=== PATIENT | female | born 1970 | race Caucasian/White ===

== ENCOUNTER → 2023-07-02 | Outpatient (CLI) | payer MEDICARE, MEDICAID, SELFPAY ==
[2023-07-02 14:54] LABS: Absolute Lymphocyte Count 2.87 X10^3/uL (0.83-4.51); Basophil# 0.05 X10^3/uL; Basophil% 0.5 % (0-1); Eosinophil# 0.03 X10^3/uL; Eosinophils% 0.3 % (0-5); Hematocrit 42.9 % (37-47); Hemoglobin 13.5 g/dL (12.0-15.0); Lymphocyte # 2.87 X10^3/ul (0.83-4.51); Lymphocyte % 29.8 % (19-41); Mean Corp Hgb Conc 31.5 g/dL (32-36); Mean Corpuscular Hgb 32.8 pg (27.0-32.0); Mean Corpuscular Volume 104.4 fL (81-99); Mean Platelet Vol. 10.9 fl (6.2-12.0); Monocyte# 0.57 X10^3/uL; Monocyte% 5.9 % (0-10); NRBC Flagged by Analyzer 0 % (0-5); Neutrophil # 5.99 X10^3/uL (2.7-7.7); Neutrophil % 62.2 % (47-70); Platelet Count 238 K/mm3 (150-450); RBC Distribution Width CV 13.7 % (11.6-14.6); RBC Distribution Width SD 51.9 fl (35.1-43.9); RET-HE 36.7 pg (30-35); Red Blood Count 4.11 M/mm3 (4.2-5.4); Reticulocyte Count 1.54 % (0.5-1.5); White Blood Count 9.6 K/mm3 (4.4-11.0)
[2023-07-02 15:42] LABS: Vitamin B12 290 pg/mL (211-911)
[2023-07-02 15:46] LABS: Hemoglobin A1c 5.4 % (3.8-5.6)
[2023-07-02 15:47] LABS: Erythrocyte Sedimentation Rate 5 mm/hr (0-30)
[2023-07-02 15:59] LABS: Amylase 57 U/L (25-115); CRP < 2.90 mg/L (0.0-3.0); Ferritin 55 ng/mL (8-252); Free T3 1.9 pg/mL (2.18-3.98); Iron 94 ug/dL (50-170); Iron Binding Capacity,Total 380 ug/dL (250-450); LDH 160 U/L (84-246); Lipase 22 U/L (13-75); T4 Free Direct 1.15 ng/dL (0.76-1.46); Thyroid Stim Hormone (TSH) 1.61 uIU/mL (0.358-3.74)
[2023-07-06 14:09] LABS: Anti-Centromere B Ab <0.2 AI (0.0-0.9); Anti-Chromatin <0.2 AI (0.0-0.9); Anti-Jo <0.2 AI (0.0-0.9); Anti-Scleroderma-70 AB <0.2 AI (0.0-0.9); Anti-dsDNA Ab <1 IU/mL (0-9); RNP Ab 0.2 AI (0.0-0.9); SJOGREN'S Anti-SS-A test < 0.2 AI (0.0-0.9); SJOGREN'S Anti-SS-B test < 0.2 AI (0.0-0.9); Smith Ab <0.2 AI (0.0-0.9); Vitamin D 1,25-Dihydroxy 37.1 pg/mL (24.8-81.5)
[2023-07-08 00:07] LABS: Albumin 3.3 g/dL (2.9-4.4); Alpha-1-Globulins 0.3 g/dL (0.0-0.4); Cytoplasmic Ab (C-ANCA) <1:20 titer (Neg:<1:20); Endomysial Antibody IgA Negative (Negative); Gamma Globulin 1.2 g/dL (0.4-1.8); Gastrin, Serum 493 pg/mL (0-115); Haptoglobin 174 mg/dL (33-346); Immunoglobulin A 190 mg/dL (87-352); Immunoglobulin E 146 IU/mL (6-495); Immunoglobulin G 1196 mg/dL (586-1602); Immunoglobulin M 83 mg/dL (26-217); PROEL- TOTAL PROTEIN 6.9 g/dL (6.0-8.5); Perinuclear Ab (P-ANCA) <1:20 titer (Neg:<1:20); t-Transglutaminase IgA <2 U/mL (0-3)
[2023-07-12 22:07] LABS: Calprotectin, Stool 415 ug/g (0-120); Fats, Neutral Normal (.); Fats, Total Normal (.)
[2023-07-18 15:07] LABS: H. PYLORI STOOL AG Negative (Negative); Pancreatic Elastase, Fecal 108 (>200)
== END | disposition home or self-care (01) ==
PROVIDERS: Referring Provider Internal Medicine Gastroenterology; Visit Provider Internal Medicine Gastroenterology
DX: D64.9 Anemia, unspecified (principal); E11.9 Type 2 diabetes mellitus without complications; K92.2 Gastrointestinal hemorrhage, unspecified; R19.7 Diarrhea, unspecified
CPT/HCPCS: 36415; 82150; 82274; 82607; 82652; 82653; 82705; 82728; 82784; 82785; 82941; 83010; 83036; 83516; 83540; 83550; 83615; 83630; 83690; 83993; 84165; 84439; 84443; 84481; 85025; 85045; 85652; 86140; 86225; 86235; 86255; 86256; 86334; 87177; 87209; 87329; 87338; 87506

== ENCOUNTER → 2023-07-14 | Outpatient (CLI) | payer MEDICARE, MEDICAID, SELFPAY ==
--- NOTE | 2023-07-14 15:15 | CT_ITS ---
STUDY: CT ABDOMEN AND PELVIS WITH CONTRAST REASON FOR EXAM: Female, 53 years old. Diarrhea RADIATION DOSAGE (If Supplied By Facility): CTDIvol = ( 10.09 ) mGy, DLP = ( 325.41 ) mGycm TECHNIQUE: Transaxial images were obtained from the dome of the diaphragm to the symphysis pubis with oral contrast. IV ; 100mL Isovue-370 was administered. Sagittal and coronal images were reconstructed. Individualized dose optimization techniques were used for this CT. COMPARISON: None. FINDINGS: The visualized lung bases are unremarkable. The visualized portions of the heart are within normal limits. Normal liver. Normal gallbladder and extrahepatic biliary system. Normal spleen. Normal pancreas. Normal bilateral adrenal glands. There are at least 5 stones of the right kidney measuring up to 1.0 cm. There are at least 5 stones of the left kidney measuring up to 1.5 cm at the lower pole . There is no hydronephrosis. Normal visualized stomach. Normal small intestine. Normal colon. There is moderate stool. The appendix is visualized and appears normal. There is atherosclerotic calcification of the abdominal aorta, without a demonstrated aneurysm. Normal inferior vena cava. Normal retroperitoneum. Normal urinary bladder. There is absence of the uterus consistent with a prior hysterectomy. There is no free fluid in the abdomen or pelvis. Normal abdominal wall. There is mild degenerative change of the spine. There is advanced degenerative change of the left hip. There is right hip replacement. CT/Abdomen/Pelvis WITH Contrast IMPRESSION: Bilateral renal stones. No hydronephrosis. No obstruction. Moderate stool. Electronically Signed: Demarcus Nino MD at 21:52 EDT ,
[2023-07-14 15:26] LABS: CREATININE FINGERSTICK 1.2 mg/dL (0.55-1.02)
== END | disposition home or self-care (01) ==
LOC: CT 14:49
PROVIDERS: Referring Provider Internal Medicine Gastroenterology; Visit Provider Internal Medicine Gastroenterology
DX: K92.2 Gastrointestinal hemorrhage, unspecified (principal); R19.7 Diarrhea, unspecified
CPT/HCPCS: 74177; Q9967; A4216

== ENCOUNTER 2023-07-23 13:40 | Day surgery (SDC) | payer MEDICARE, MEDICAID, SELFPAY ==
--- NOTE | 2023-07-23 | IMM_PTH ---
PATIENT: BRENNEN LO LOC: EN U#:[id number] AGE/SX: 53/F ROOM: RE07/23/[address]: Dr. Ron Farr DO : 1970 BED: DIS: 07/23/2023 SPEC #: [id number] RECD: 07/26/23 09:02 STATUS: FLORA REShivani #: [id number] SID: 07/23/23 00:[address]: Ron Farr DEPT: IMMUNOHISTOCHEMISTRY RECD BY: Corrie Nickerson ENTERED: 07/26/23 09:02 SP TYPE: IMMUNO OTHR DR: Dr. Cayden Etienne, Tissues: B - Gastric mucous membrane Procedures: H Pylori (initial) PHYSICIAN & INSTITUTION [place] [address] SPECIMEN INFORMATION: Tissue Source: Gastric body, biopsy Clinical Info: Diarrhea Specimen Number: [id number] CPT code: 99664 METHODOLOGY: Deparaffinized sections of prefer/formalin-fixed tissue or PAP/DQ stained slides are incubated with monoclonal/polyclonal antibodies/oligonucleotide probes. Localization is made via biotin free immunoperoxidase method. Appropriate controls are performed and reacted as expected. Results on target cell population are indicated in the following table: RESULTS: ANTIBODY / CLONE RESULT H Pylori (polyclonal) negative These tests were developed and their performance characteristics determined by [facility]. They may not have been cleared or approved by the U.S. Food and Drug Administration. The FDA has determined that such clearance or approval is not necessary. The above immunohistochemical/dualISH markers are ordered and reviewed by the Pathologist. INTERPRETATION: B. Gastric body, biopsy: Negative for Helicobacter pylori organisms. SJ:gera 07/27/2023
[2023-07-23] MEDS: Lactated Ringers 1,000 ML 15 ML IV (14:14)
[2023-07-23 14:15] VITALS: BP 122/79; PULSE 90; RESP 16; TEMP 36.2; O2SAT 99; BMI 21.4
--- NOTE | 2023-07-23 14:45 | EGD_PTH ---
PATIENT: BRENNEN LO LOC: EN U#:[id number] AGE/SX: 53/F ROOM: RE07/23/[address]: Dr. Ron Farr DO : 1970 BED: DIS: 07/23/2023 SPEC #: [id number] RECD: 07/23/23 18:22 STATUS: FLORA DANAY #: [id number] SID: 07/23/23 14:[address]: Ron Farr DEPT: SURGICAL PATHOLOGY RECD BY: Irma Minaya ENTERED: 07/26/23 08:24 SP TYPE: EGD BIOPSY ROLAND DR: Dr. Cayden Etienne DO Tissues: A - Duodenum, NOS B - Gastric mucous membrane C - COLON BIOPSY D - Ileum, NOS E - COLON BIOPSY Procedures: Surgery Specimen Level IV HEADER OPERATION: Colonoscopy with biopsies, polypectomy PRE-OP DIAGNOSIS: Diarrhea TISSUE SUBMITTED: A. Duodenum, B. Gastric body, C. Hepatic flexure polyp, D. Terminal ileum, E. Random colon MICROSCOPIC DIAGNOSIS A. Duodenum, biopsy: Fragments of duodenal mucosa, no pathologic diagnosis. B. Gastric body, biopsy: Mild gastritis. See microscopic description and comment. C. Hepatic flexure polyp, polypectomy: Fragments of tubular adenoma. D. Terminal ileum, biopsy: Fragments of small intestinal mucosa, no pathologic diagnosis. E. Random colon, biopsy: Fragments of colonic mucosa, no pathologic diagnosis. SJ: 07/27/2023 COMMENT B. The results of immunohistochemistry for Helicobacter pylori will be reported separately ([id number]). MICROSCOPIC DESCRIPTION Slides are reviewed. The specimen shows fragments of gastric mucosa with chronic inflammatory cell infiltrates in the lamina propria consisting of lymphocytes and plasma cells, consistent with mild chronic gastritis. GROSS DESCRIPTION A. Received is one container labeled with the patient name and designated duodenum. The specimen consists of multiple irregular fragment of light hernandez soft tissue that measures .6 x .3 x .1 cm. The specimen is totally submitted in one cassette. B. Received is one container labeled with the patient name and designated gastric body. The specimen consists of one irregular fragment of light hernandez soft tissue that measures .3 x .3 x .1 cm. The specimen is totally submitted in one cassette. C. Received is one container labeled with the patient name and designated hepatic flexure polyp. The specimen consists of one irregular fragment of light hernandez soft tissue that measures .3 x .3 x 1 cm. The specimen is totally submitted in one cassette. D. Received is one container labeled with the patient name and designated terminal ileum. The specimen consists of multiple irregular fragments of light hernandez soft tissue that in aggregate measure 1 x .3 x .1 cm. The specimen is totally submitted in one cassette. E. Received is one container labeled with the patient name and designated random colon. The specimen consists of multiple irregular fragments of light hernandez soft tissue that in aggregate measure .1 x .3 x .1 cm. The specimen is totally submitted in one cassette. / SJ:cc 07/26/23 TC:1 CPT: 20064 x5
[2023-07-23 14:47] LABS: Bedside Glucose 74 mg/dL (74-106)
--- NOTE | 2023-07-23 15:20 | PCM.HP.BLA ---
History and Physical Date of Admission: 07/23/23 53 F who presents to the office today for initial consult. PCP OV 01.19. as f/u for DMII, hyperlipidemia, hypothyroidism, fatigue, unintentional weight loss and history of gastric ulcer. PCP recommended cessation of nabumetone? OV 07.02.23 Pt reports hx of multiple gastric ulcers. Has frequent nausea and burning sensation in stomach. Sees bright red in vomit frequently. Denies dysphagia. Also has episodes of urgent diarrhea. Sometimes cant make it to the restroom. Sees blood in stool periodically. ROS Const Constitutional: Positive for fatigue ENT ENT: No difficulty swallowing Gastro GI: Positive for heartburn, Vomiting blood/hematemesis, Blood in stool, nausea/dyspepsia and vomiting; No abdominal pain, belching, bloating, change in bowel habits, change in stool character, coffee ground emesis, constipation, cramping, diarrhea, difficulty swallowing, feeling full early, excessive flatus, incontinent of stools, loose stools, Black,tarry stools, pain with swallowing or other Musc Musculoskeletal: Positive for abnormal gait, joint pain, back pain, joint swelling, stiffness and Arthritis Skin Skin: No yellowing of the eye or itchy eyes Neuro Neurology: Positive for abnormal gait Psych Psychiatric: Positive for anxiety and No depression Endo Endocrine: Positive for fatigue Aller/Imm Allergy/Immunologic: No itchy eyes Zenon/Lymp Hematologic/Lymphatic: No easy bleeding or easy bruising Exam Const General: cooperative and comfortable Nutritional Appearance: average body habitus and well nourished [facility] Head: normal to inspection Ears: hearing grossly normal bilaterally Nose: external nose normal Face and sinus: normal facial exam Mouth: oral mucosae normal Throat: posterior oropharynx normal Eyes General: appearance normal, both eyes and all related structures Neck Neck: normal visual inspection Chest Chest palpation & inspection: normal inspection of the chest and normal palpation of entire chest wall Resp Effort & Inspection: normal respiratory effort Auscultation: Bilateral: Clear to Auscultation Cardio Palpation: normal PMI Rate: regular rate Rhythm: regular rhythm GI Inspection: normal to inspection Auscultation: normal bowel sounds Percussion: normal to percussion Palpation: no hepatosplenomegaly Skin General: no rashes or lesions noted Neuro General: patient alert Extrem General: normal to inspection Psych Affect: normal affect Quality Reporting Tobacco Screening ([facility] 138) Smoking Status: Former smoker Assessment and Plan Assessment and Plan (1) GI bleed: Status: Acute Qualifiers: GI bleed type/associated pathology: gastric ulcer Qualified Code(s): K25.4 - Chronic or unspecified gastric ulcer with hemorrhage Plan: She did have some signs and symptoms of upper GI bleed with retching. That is more consistent with Leah-Jernigan tear. However she does have a history of peptic ulcer disease. She is on no if her ulcers are secondary to H. pylori or medicines that she takes on a daily basis. She has no signs or symptoms of chronic or acute liver disease. She will undergo an upper endoscopy to evaluate up in the GI tract. She will also get a CT scan abdomen pelvis due to weight loss. (2) Diarrhea: Status: Acute Qualifiers: Diarrhea type: functional diarrhea Qualified Code(s): K59.1 - Functional diarrhea Plan: The differential diagnosis for diarrhea does include infectious, secretory, GI bleed, inflammatory bowel disease, microscopic colitis, collagenous colitis, celiac disease. She will undergo colonoscopy to evaluate her lower GI tract. She was explained alternatives, risk and benefits including outstanding bleeding, infection, sepsis, perforation, need for emergent . She will have an ASA of 3. Orders: Orders CBC W/Diff, Automated Today D64.9 - Anemia, unspecified, K92.2 - Gastrointestinal hemorrhage, unspecified, R19.7 - Diarrhea, unspecified Ferritin Today D64.9 - Anemia, unspecified, K92.2 - Gastrointestinal hemorrhage, unspecified, R19.7 - Diarrhea, unspecified Haptoglobin Today K92.2 - Gastrointestinal hemorrhage, unspecified, R19.7 - Diarrhea, unspecified SEBASTIAN + Protein Elect, Serum Today K92.2 - Gastrointestinal hemorrhage, unspecified, R19.7 - Diarrhea, unspecified Iron Binding Capacity,Total Today D64.9 - Anemia, unspecified, K92.2 - Gastrointestinal hemorrhage, unspecified, R19.7 - Diarrhea, unspecified LDH Today K92.2 - Gastrointestinal hemorrhage, unspecified, R19.7 - Diarrhea, unspecified Retic Panel Count Today K92.2 - Gastrointestinal hemorrhage, unspecified, R19.7 - Diarrhea, unspecified Iron Today D64.9 - Anemia, unspecified, K92.2 - Gastrointestinal hemorrhage, unspecified, R19.7 - Diarrhea, unspecified ANCA Today K92.2 - Gastrointestinal hemorrhage, unspecified, R19.7 - Diarrhea, unspecified Celiac Disease Profile Today K92.2 - Gastrointestinal hemorrhage, unspecified, R19.7 - Diarrhea, unspecified CRP Today K92.2 - Gastrointestinal hemorrhage, unspecified, R19.7 - Diarrhea, unspecified Erythrocyte Sed Rate Today K92.2 - Gastrointestinal hemorrhage, unspecified, R19.7 - Diarrhea, unspecified Immunoglobulin A Today K92.2 - Gastrointestinal hemorrhage, unspecified, R19.7 - Diarrhea, unspecified Immunoglobulin E Today K92.2 - Gastrointestinal hemorrhage, unspecified, R19.7 - Diarrhea, unspecified Immunoglobulin G Today K92.2 - Gastrointestinal hemorrhage, unspecified, R19.7 - Diarrhea, unspecified Miscellaneous Lab Procedure Today K92.2 - Gastrointestinal hemorrhage, unspecified, R19.7 - Diarrhea, unspecified Amylase Today K92.2 - Gastrointestinal hemorrhage, unspecified, R19.7 - Diarrhea, unspecified Lipase Today K92.2 - Gastrointestinal hemorrhage, unspecified, R19.7 - Diarrhea, unspecified Fecal Fat, Qualitative Today K92.2 - Gastrointestinal hemorrhage, unspecified, R19.7 - Diarrhea, unspecified Pancreatic Elastase, Fecal Today K92.2 - Gastrointestinal hemorrhage, unspecified, R19.7 - Diarrhea, unspecified Stool Lactoferrin/WBC Today K58.9 - Irritable bowel syndrome without diarrhea, K92.2 - Gastrointestinal hemorrhage, unspecified, R19.7 - Diarrhea, unspecified Calprotectin, Stool Today K92.2 - Gastrointestinal hemorrhage, unspecified, R19.7 - Diarrhea, unspecified GUILHERME Comprehensive Panel Today K92.2 - Gastrointestinal hemorrhage, unspecified, R19.7 - Diarrhea, unspecified Hemoglobin A1c Today E11.9 - Type 2 diabetes mellitus without complications, K92.2 - Gastrointestinal hemorrhage, unspecified, R19.7 - Diarrhea, unspecified ENTERIC PATHOGEN PANEL STOOL Today K58.9 - Irritable bowel syndrome without diarrhea, K92.2 - Gastrointestinal hemorrhage, unspecified, R19.7 - Diarrhea, unspecified CDIFF (PCR) Today K92.2 - Gastrointestinal hemorrhage, unspecified, R19.7 - Diarrhea, unspecified OVA+PARA w/Giardia EIA [id number] Today K92.2 - Gastrointestinal hemorrhage, unspecified, R19.7 - Diarrhea, unspecified Stool Occult Blood iFOB Today K92.2 - Gastrointestinal hemorrhage, unspecified, R19.7 - Diarrhea, unspecified Thyroid Stim Hormone (TSH) Today D64.9 - Anemia, unspecified, K92.2 - Gastrointestinal hemorrhage, unspecified, R19.7 - Diarrhea, unspecified Vitamin D 1,25-Dihydroxy Today K92.2 - Gastrointestinal hemorrhage, unspecified, R19.7 - Diarrhea, unspecified Vitamin B12 Today K92.2 - Gastrointestinal hemorrhage, unspecified, R19.7 - Diarrhea, unspecified Free T3 Today K92.2 - Gastrointestinal hemorrhage, unspecified, R19.7 - Diarrhea, unspecified T4 Free Direct Today D64.9 - Anemia, unspecified, K92.2 - Gastrointestinal hemorrhage, unspecified, R19.7 - Diarrhea, unspecified Abdomen/Pelvis WITH Contrast Today K92.2 - Gastrointestinal hemorrhage, unspecified, R19.7 - Diarrhea, unspecified H. PYLORI STOOL AG Today K92.2 - Gastrointestinal hemorrhage, unspecified, R19.7 - Diarrhea, unspecified Gastrin, Serum Today K92.2 - Gastrointestinal hemorrhage, unspecified, R19.7 - Diarrhea, unspecified I have examined the patient and the H&P has been reviewed. There are no clinical changes since date of exam.
[2023-07-23 16:05] VITALS: BP 114/64; BP 122/79; PULSE 74; RESP 16; TEMP 36.1; O2SAT 100
[2023-07-23 16:10] VITALS: BP 112/72; BP 122/79; PULSE 74; RESP 16; O2SAT 100
--- NOTE | 2023-07-23 16:10 | OP.EGD_ITS ---
Patient Name: Johanna Del Toro Procedure Date: 07/23/2023 3:36 PM Date of : 1970 Age: 53 Procedure: Upper GI endoscopy Indications: Epigastric abdominal pain, Functional Dyspepsia Providers: Ron Farr DO Referring MD: Cayden Etienne Md Medicines: Monitored Anesthesia Care Patient Profile: This is a 53 year old female. Refer to note in patient chart for documentation of history and physical. Patient has symptoms of chronic abdominal cramping and chronic epigastric abdominal pain. Complications: No immediate complications. Procedure: Pre-Anesthesia Assessment: - Prior to the procedure, a History and Physical was performed, and patient medications and allergies were reviewed. The patient is competent. The risks and benefits of the procedure and the sedation options and risks were discussed with the patient. All questions were answered and informed consent was obtained. Patient identification and proposed procedure were verified by the physician in the pre-procedure area. Mental Status Examination: alert and oriented. Airway Examination: normal oropharyngeal airway and neck mobility. Respiratory Examination: clear to auscultation. CV Examination: normal. Prophylactic Antibiotics: The patient does not require prophylactic antibiotics. Prior Anticoagulants: The patient has taken no anticoagulant or antiplatelet agents. ASA Grade Assessment: II - A patient with mild systemic disease. After reviewing the risks and benefits, the patient was deemed in satisfactory condition to undergo the procedure. The anesthesia plan was to use monitored anesthesia care (MAC). Immediately prior to administration of medications, the patient was re-assessed for adequacy to receive sedatives. The heart rate, respiratory rate, oxygen saturations, blood pressure, adequacy of pulmonary ventilation, and response to care were monitored throughout the procedure. The physical status of the patient was re-assessed after the procedure. After obtaining informed consent, the endoscope was passed under direct vision. Throughout the procedure, the patient's blood pressure, pulse, and oxygen saturations were monitored continuously. The Colonoscope was introduced through the mouth, and advanced to the second part of duodenum. The upper GI endoscopy was accomplished without difficulty. The patient tolerated the procedure well. Scope In: 3:23:42 PM Scope Out: 3:27:59 PM Total Procedure Duration Time 0 hours 4 minutes 17 seconds Findings: The examined esophagus was normal. Patchy mildly erythematous mucosa without bleeding was found in the gastric body. Biopsies were taken with a cold forceps for histology. Verification of patient identification for the specimen was done. Estimated blood loss was minimal. Biopsies were taken with a cold forceps for Helicobacter pylori testing. Verification of patient identification for the specimen was done. Estimated blood loss was minimal. Patchy mildly erythematous mucosa without active bleeding and with no stigmata of bleeding was found in the duodenal bulb. Biopsies were taken with a cold forceps for histology. Verification of patient identification for the specimen was done. Estimated blood loss was minimal. Impression: - Normal esophagus. - Erythematous mucosa in the gastric body. Biopsied. - Erythematous duodenopathy. Biopsied. Recommendation: - Discharge patient to home. - Resume previous diet. - Continue present medications. - Await pathology results. Procedure Code(s): --- Professional --- 53807, Esophagogastroduodenoscopy, flexible, transoral; with biopsy, single or multiple CPT copyright 2021 [employer]. All rights reserved. The codes documented in this report are preliminary and upon barking machine feeder review may be revised to meet current compliance requirements. Ron Farr DO 07/23/2023 4:09:53 PM This report has been signed electronically. Number of Addenda: 0 Note Initiated On: 07/23/2023 3:36 PM
--- NOTE | 2023-07-23 16:10 | OP.CCLET_ITS ---
07/23/2023 Cayden Etienne Do Re : Upper GI endoscopy procedure for Johanna Del Toro Dear Dr. Etienne This procedure was performed on Sunday, July 23, 2023. My impressions and recommendations are as follows: Impressions : - Normal esophagus. - Erythematous mucosa in the gastric body. Biopsied. - Erythematous duodenopathy. Biopsied. Recommendations : - Discharge patient to home. - Resume previous diet. - Continue present medications. - Await pathology results. My findings are described in the full procedure note, which is enclosed. If I can be of further assistance, please feel free to contact me at . Sincerely, Ron Farr, 07/23/2023 4:09:53 PM This report has been signed electronically.
[2023-07-23 16:17] VITALS: BP 104/70; BP 122/79; PULSE 77; RESP 16; O2SAT 98
[2023-07-23 16:20] VITALS: BP 119/71; BP 122/79; PULSE 85; RESP 16; TEMP 36.3; O2SAT 99
[2023-07-23 16:30] VITALS: BP 122/79
--- NOTE | 2023-07-23 16:43 | OP.COLON_ITS ---
Patient Name: Johanna Del Toro Procedure Date: 07/23/2023 3:28 PM Date of : 1970 Age: 53 Procedure: Colonoscopy Indications: Generalized abdominal pain, Clinically significant diarrhea of unexplained origin Providers: Ron Farr DO Referring MD: Cayden Etienne Md Medicines: Monitored Anesthesia Care Patient Profile: This is a 53 year old female. Refer to note in patient chart for documentation of history and physical. Last Colonoscopy: date unknown. Unable to locate last colonoscopy report. Complications: No immediate complications. Procedure: Pre-Anesthesia Assessment: - Prior to the procedure, a History and Physical was performed, and patient medications and allergies were reviewed. The patient is competent. The risks and benefits of the procedure and the sedation options and risks were discussed with the patient. All questions were answered and informed consent was obtained. Patient identification and proposed procedure were verified by the physician in the pre-procedure area. Mental Status Examination: alert and oriented. Airway Examination: normal oropharyngeal airway and neck mobility. Respiratory Examination: clear to auscultation. CV Examination: normal. Prophylactic Antibiotics: The patient does not require prophylactic antibiotics. Prior Anticoagulants: The patient has taken no anticoagulant or antiplatelet agents. ASA Grade Assessment: II - A patient with mild systemic disease. After reviewing the risks and benefits, the patient was deemed in satisfactory condition to undergo the procedure. The anesthesia plan was to use monitored anesthesia care (MAC). Immediately prior to administration of medications, the patient was re-assessed for adequacy to receive sedatives. The heart rate, respiratory rate, oxygen saturations, blood pressure, adequacy of pulmonary ventilation, and response to care were monitored throughout the procedure. The physical status of the patient was re-assessed after the procedure. After I obtained informed consent, the scope was passed under direct vision. Throughout the procedure, the patient's blood pressure, pulse, and oxygen saturations were monitored continuously. The Colonoscope was introduced through the anus and advanced to the terminal ileum. The colonoscopy was performed without difficulty. The patient tolerated the procedure well. The quality of the bowel preparation was fair. The terminal ileum, ileocecal valve, appendiceal orifice, and rectum were photographed. Scope In: 3:29:56 PM Scope Withdrawal Time 0 hours 10 minutes 21 seconds Scope Out: 3:59:34 PM Total Procedure Duration Time 0 hours 29 minutes 38 seconds Findings: The perianal and digital rectal examinations were normal. A 5 mm polyp was found in the sigmoid colon. The polyp was sessile. The polyp was removed with a cold snare. Resection and retrieval were complete. Verification of patient identification for the specimen was done by the physician. Estimated blood loss was minimal. A benign-appearing, intrinsic severe stenosis measuring 3 cm (in length) was found in the recto-sigmoid colon and was traversed. A few small and large-mouthed diverticula were found in the recto-sigmoid colon and sigmoid colon. An area of mildly congested mucosa was found in the sigmoid colon, in the descending colon and at the hepatic flexure. Biopsies were taken with a cold forceps for histology. Verification of patient identification for the specimen was done. Estimated blood loss was minimal. The terminal ileum appeared normal. Biopsies were taken with a cold forceps for histology. Verification of patient identification for the specimen was done. Estimated blood loss was minimal. Impression: - Preparation of the colon was fair. - One 5 mm polyp in the sigmoid colon, removed with a cold snare. Resected and retrieved. - Stricture in the recto-sigmoid colon. - Diverticulosis in the recto-sigmoid colon and in the sigmoid colon. - Congested mucosa in the sigmoid colon, in the descending colon and at the hepatic flexure. Biopsied. - The examined portion of the ileum was normal. Biopsied. Recommendation: - Discharge patient to home. - Resume previous diet. - Continue present medications. - Await pathology results. - Repeat colonoscopy in 5 years for surveillance. Procedure Code(s): --- Professional --- 06140, Colonoscopy, flexible; with removal of tumor(s), polyp(s), or other lesion(s) by snare technique 08157, 59, Colonoscopy, flexible; with biopsy, single or multiple CPT copyright 2021 [employer]. All rights reserved. The codes documented in this report are preliminary and upon balancing machine operator review may be revised to meet current compliance requirements. Ron Farr DO 07/23/2023 4:42:47 PM This report has been signed electronically. Number of Addenda: 0 Note Initiated On: 07/23/2023 3:28 PM
--- NOTE | 2023-07-23 16:43 | OP.CCLET_ITS ---
07/23/2023 Cayden Etienne Do Re : Colonoscopy procedure for Johanna Del Toro Dear Dr. Etienne This procedure was performed on Sunday, July 23, 2023. My impressions and recommendations are as follows: Impressions : - Preparation of the colon was fair. - One 5 mm polyp in the sigmoid colon, removed with a cold snare. Resected and retrieved. - Stricture in the recto-sigmoid colon. - Diverticulosis in the recto-sigmoid colon and in the sigmoid colon. - Congested mucosa in the sigmoid colon, in the descending colon and at the hepatic flexure. Biopsied. - The examined portion of the ileum was normal. Biopsied. Recommendations : - Discharge patient to home. - Resume previous diet. - Continue present medications. - Await pathology results. - Repeat colonoscopy in 5 years for surveillance. My findings are described in the full procedure note, which is enclosed. If I can be of further assistance, please feel free to contact me at . Sincerely, Ron Farr DO 07/23/2023 4:42:47 PM This report has been signed electronically.
== END 2023-07-23 16:43 | disposition home or self-care (01) ==
LOC: EN 13:41 → AC 13:43
PROVIDERS: Visit Provider Internal Medicine Gastroenterology
PROC: 0DJD8ZZ Inspection of Lower Intestinal Tract, Via Natural or Artificial Opening Endoscopic (ICD-10-PCS; CPT 45378; principal; 2023-07-23 14:40)
DX: K25.4 Chronic or unspecified gastric ulcer with hemorrhage (principal); K56.609 Unspecified intestinal obstruction, unspecified as to partial versus complete obstruction; R10.13 Epigastric pain; Z87.891 Personal history of nicotine dependence; R10.84 Generalized abdominal pain; K57.30 Diverticulosis of large intestine without perforation or abscess without bleeding; K63.89 Other specified diseases of intestine; R19.7 Diarrhea, unspecified; K29.70 Gastritis, unspecified, without bleeding; D12.3 Benign neoplasm of transverse colon
CPT/HCPCS: 45380; 43239; 45385; 82962; 88305; 88342; J7120; J2405

== ENCOUNTER → 2023-11-19 | Outpatient (CLI) | payer MEDICARE, MEDICAID, SELFPAY ==
--- OUTSIDE RECORDS SUMMARY | 2023-11-19 10:39 | XMS RPT_ITS | CCD ---
Author Name Unknown Address [address] [employer] [address] [place] [id number] Organization [facility] Care Team Providers Care Service Engineer Name Role Phone MAGALY CORRUGATOR HELPER-DELICATESSEN SLICER, REFUGIO Childress Primary Care Physicia n Unavailable Primary Care Provider JOSÉ MIGUEL Blackman Attending Unavailable NORMA CHOWDHURY, DR SANCHEZ Attending Vanna MCKENZIE CORRUGATOR HELPER-DELICATESSEN SLICER, REFUGIO S Primary Care Unava ilable MAGALY CORRUGATOR HELPER-DELICATESSEN SLICER, REFUGIO S Primary Care Unava ilable DEE COLINDRES DO Attending Unavailable MAGALY CORRUGATOR HELPER-DELICATESSEN SLICER, REFUGIO S Primary Care Unava ilable MAGALY CORRUGATOR HELPER-DELICATESSEN SLICER, REFUGIO S Attending Unava ilable MAGALY CORRUGATOR HELPER-DELICATESSEN SLICER, REFUGIO S Attending Unava ilable MAGALY CORRUGATOR HELPER-DELICATESSEN SLICER, REFUGIO S Primary Care Unava ilable MAGALY CORRUGATOR HELPER-DELICATESSEN SLICER, REFUGIO S Attending Unava ilable MAGALY CORRUGATOR HELPER-DELICATESSEN SLICER, REFUGIO S Primary Care Unava ilable Allergies Allergy Classification Reported Allergen(s) Allergy Type Date of Onset Reaction(s) Facility (5 sources) Pollen Allergy to substance Watery eye (finding) [facility] (5 sources) Sulfonamides (Antibiotic); Translations: [sulfa drugs] Drug allergy Rash [facility] (2 sources) Pollen; Translations: [POLLEN EXTRACTS] Drug Allergy 2 Intolerance [facility] (2 sources) Sulfonamides (Antibiotic); Translations: [SULFA (SULFONAMIDE ANTIBIOTICS)] Drug Allergy 9 Hives [facility] Medications Current Medications Medication Drug Class(es) Dates Sig (Normalized) Sig (Original) Albuterol (5 sources) beta2-Adrenergic Agonist Start: 08-19-2022 End: 08-14-2023 take 2 puff(s) by inhalation every four hours as needed for wheezing Ventolin HFA MDI (90 mcg/inh) inhalation aerosol 2 puff(s), Inhalation, q4h, PRN as needed for wheezing, # 3 EA, 3 Refill(s), Pharmacy: [facility]/pharmacy #[id number], 159, cm, 08/18/22 10:54:00 EST, Height, kg, 08/18/22 10:54:00 EST, Dosing Weight Start Date: 08/19/22 Stop Date: 08/14/23 Status: Ordered Completed/Discontinued Medications Medication Drug Class(es) Dates Sig (Normalized) Sig (Original) [facility] PAIN RELIEF 500 MG CAPLET (5 sources) Start: 09-19-2019 [facility] PAIN RELIEF 500 MG CAPLET TAKE 1-2 TABLETS BY MOUTH EVERY 6-8 HOURS NEEDED FOR PAIN Start Date: 09/19/19 Status: Ordered ketorolac tromethamine 5 mg/ml ophthalmic solution (1 source) Nonsteroidal Anti-inflammatory Drug, Cyclooxygenase Inhibitor Start: 04-14-2022 take 1 drop(s) into the eye(s) four times daily keTORolac (ACULAR) 0.5 % ophthalmic solution INSTILL 1 DROP INTO SURGICAL EYE 4 TIMES DAILY FOLLOW SCHEDULE 0 04/14/2022 Active Problems Problem Classification Problem Date Documented Da te Episodic/Chronic Anxiety disorders (5 sources) Anxiety 08-29-2019 Chronic Cataract (3 sources) Cataract of left eye 12-23-2021 Chronic Diabetes mellitus without complication (5 sources) Diabetes mellitus 08-29-2019 Chronic Disorders of lipid metabolism (5 sources) Hyperlipidemia 08-29-2019 Chronic Epilepsy; convulsions (1 source) Epilepsy; Translations: [Epilepsy, unspecified, not intractable, without status epilepticus] Chronic Epilepsy; convulsions (1 source) Seizure disorder 01-21-2023 Episodic Gastroduodenal ulcer (except hemorrhage) (5 sources) H/O: gastric ulcer 08-20-2021 Episodic Genitourinary symptoms and ill-defined conditions (2 sources) Dysuria; Translations: [Dysuria] Onset: 07-12-2022 Episodic Glaucoma (5 sources) Glaucoma 08-25-2019 Chronic Heart valve disorders (2 sources) Aortic valve sclerosis 01-07-2022 Chronic Heart valve disorders (1 source) Systolic murmur 12-23-2021 Episodic Malaise and fatigue (2 sources) Fatigue 01-19-2023 Episodic Mood disorders (5 sources) Depressive disorder 08-25-2019 Chronic Other diseases of kidney and ureters (1 source) Disorder of kidney and/or ureter; Translations: [Disorder of kidney and ureter, unspecified] Episodic Other gastrointestinal disorders (3 sources) Diarrhea; Translations: [Diarrhea, unspecified] Episodic Other hematologic conditions (1 source) Disorder of hematopoietic structure; 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 and blood-forming organs] Chronic Other hematologic conditions (1 source) Macrocytosis 01-21-2023 Chronic Other nutritional; endocrine; and metabolic disorders (2 sources) Unintentional weight loss 01-19-2023 Episodic Other nutritional; endocrine; and metabolic disorders (1 source) Developmental delay 03-10-2023 Episodic Other screening for suspected conditions (not mental disorders or infectious disease) (2 sources) Viral screening status 01-19-2023 Episodic Other upper respiratory infections (2 sources) Sore throat symptom; Translations: [Acute pharyngitis, unspecified] Onset: 07-12-2022 Episodic Residual codes; unclassified (3 sources) Early satiety 08-20-2021 Episodic Thyroid disorders (5 sources) Hypothyroidism 08-29-2019 Chronic Unclassified (9 sources) Patient encounter status 05-07-2020 Unclassified (2 sources) Drug therapy finding 01-19-2023 Results Test Name Value Interpretation Reference Range Facil ity Vital Signs Date Time Vital Sign Value Performing Clinician Faci lity 07-12-2022 11:01-0400 Body temperature 97.39 [degF] José Miguel Silva PA-C Work Phone: [facility] 07-12-2022 11:01-0400 Body weight 60.96 kg José Miguel Silva PA-C Work Phone: [facility] 07-12-2022 11:01-0400 Diastolic blood pressure 89 mm[Hg] José Miguel Silva PA-C Work Phone: [facility] 07-12-2022 11:01-0400 Heart rate 88 /min José Miguel Toureler PA-C Work Phone: [facility] 07-12-2022 11:01-0400 Respiratory rate 18 /min José Miguel Silva PA-C Work Phone: [facility] 07-12-2022 11:01-0400 SaO2% (BldA) [Mass fraction] 97 % José Miguel Silva PA-C Work Phone: [facility] 07-12-2022 11:01-0400 Systolic blood pressure 121 mm[Hg] José Miguel Silva PA-C Work Phone: [facility] Encounters Encounter Date Encounter Type Care Provider Facility Start: 03-17-2023 End: 03-18-2023 ambulatory REFUGIO MCKENZIE CORRUGATOR HELPER-DELICATESSEN SLICER Facility:B Start: 03-17-2023 End: 03-17-2023 Patient encounter procedure DEE COLINDRES DO [facility] Start: 03-17-2023 End: 03-17-2023 Well adult monitoring check done DEE COLINDRES DO [facility] Start: 02-03-2023 End: 02-04-2023 ambulatory REFUGIO MCKENZIE CORRUGATOR HELPER-DELICATESSEN SLICER Facility:[facility] Start: 01-19-2023 End: 01-20-2023 ambulatory REFUGIO MCKENZIE CORRUGATOR HELPER-DELICATESSEN SLICER Facility:[facility] Start: 01-19-2023 End: 01-19-2023 Patient encounter procedure REFUGIO MCKENZIE CORRUGATOR HELPER-DELICATESSEN SLICER [facility] Start: 08-18-2022 End: 08-19-2022 ambulatory REFUGIO MCKENZIE CORRUGATOR HELPER-DELICATESSEN SLICER Facility:B Start: 08-05-2022 End: 08-06-[address] LAURA GREEN DPM Facility:[facility] Start: 07-12-2022 End: 07-12-2022 ambulatory JOSÉ MIGUEL SILVA Facility:[id number] Start: 07-12-2022 End: 07-12-2022 Patient encounter procedure José Miguel Silva PA-C Work Phone: [facility] Procedures Date Procedure Procedure Detail Performing Clinician Start: 07-12-2022 Iaad ia streptococcus group a José Miguel Silva PA-C Work Phone: Start: 07-12-2022 Urnls dip stick/tabl et rgnt auto w/o microscopy José Miguel Silva PA-C Work Phone: Start: 12-25-2021 Echocardiography JENN MCKENZIE CORRUGATOR HELPER-DELICATESSEN SLICER Plan of Treatment Date Care Activity Detail Author Start: 07-12-2022 End: 09-11-2022 Bacteria identified in Urine by Culture [facility] Work Phone: Immunizations Immunization Date Immunization Notes Care Provider Fa [facility] 09-19-2022 influenza virus vaccine, unspecified formulation REFUGIO MCKENZIE CORRUGATOR HELPER-DELICATESSEN SLICER [facility] 08-20-2021 COVID-19, mRNA, LNP- S, PF, 100 mcg/ 0.5 mL dose; Translations: [Moderna COVID-19 Vaccine] REFUGIO MCKENZIE CORRUGATOR HELPER-DELICATESSEN SLICER [facility] 08-20-2021 influenza, injectabl e, quadrivalent, contains preservative; Translations: [Fluarix PF Quadrivalent ] REFUGIO MCKENZIE CORRUGATOR HELPER-DELICATESSEN SLICER [facility] 01-17-2021 SARS-CoV-2 (COVID-19 ) mRNA-1273 vaccine REFUGIO MCKENZIE CORRUGATOR HELPER-DELICATESSEN SLICER [facility] Payers Date Payer Category Payer Medicare MEDICARE MEDICAR E A AND B [id number] 2022-Present [phone] [place] [address] Medicare [id number] 2022 Medicare [id number] 2022 Medicaid MEDICAID [facility] MEDICAID [id number] 2022-Present [phone] [address] [place] [address] Medicaid [id number] 2022 Medicaid [id number] 1970 Unknown [id number] 1970 Unknown [id number] 1969 Unknown [id number] 1969 Unknown [id number] 1969 Unknown [id number] Social History Date Type Detail Facility Start: 05-07-2020 Light tobacco smoker (f inding) [facility] Evaluation + Plan note 09-21-2022 LaboratoryRadiology Note Date & Type Note Facility 09-21-2022 Evaluation + Plan note Future Scheduled TestsHIV 1/2 Ab 01/19/23MA Mammo Screening Bilateral w/ Thiago 01/19/23 [facility] Progress note 07-12-2022 Note Date & Type Note Facility 07-12-2022 Note HNO ID: [id number] Author: José Miguel Silva PA-C Service: ? Author Type: Physician Associate Professor Of Chemistry Type: Progress Notes Filed: 07/12/2022 11:57 AM Note Text: Johanna Lo is a 52 year old female who presents with UTI (X 2 days, sore throat throat) Patient presents to clinic today with chief complaint of diarrhea as well as concerns for UTI. Patient states for the past 2 days has had some watery diarrhea about 2-3 times a day. No nausea or vomiting no fevers or chills. Minimal runny nose. Has a family member who is in the nursing fashion who is concerned about the potential of urinary tract infection as there is been a history of this in the past cause some serious sepsis issues. UTI Pertinent negatives include no nausea and no vomiting. History reviewed. No pertinent past medical history. There is no problem list on file for this patient. Current Outpatient Medications Medication Sig Dispense Refill atorvastatin (LIPITOR) 80 mg tablet [address] (DEPAKOTE) 500 mg EC tablet 500 mg. esomeprazole magnesium (NEXIUM) 40 mg packet Take 40 mg by mouth. glipiZIDE (GLUCOTROL) 5 mg tablet Take by mouth. keTORolac (ACULAR) 0.5 % ophthalmic solution INSTILL 1 DROP INTO SURGICAL EYE 4 TIMES DAILY FOLLOW SCHEDULE levothyroxine (SYNTHROID) 25 mcg tablet Dose : 25 mcg = 1 tab(s), Oral, qDay, # 90 tab(s), 3 Refill(s), Pharmacy: [facility]/pharmacy #[id number], 157.6, cm, 08/20/21 11:03:00 EST, Height, kg, 08/20/21 11:03:00 EST, Dosing Weight metFORMIN ER (GLUCOPHAGE XR) 500 mg 24 hr tablet Take 500 mg by mouth. ondansetron (ZOFRAN) 4 mg tablet ZOFRAN TABLET PARoxetine (PAXIL) 40 mg tablet Take by mouth. triamcinolone acetonide (KENALOG) 0.1 % cream Apply to affected area. No current facility-administered medications for this visit. Social History Tobacco Use Smoking status: Every Day Types: Cigarettes Smokeless tobacco: Never Vaping Use Vaping Use: Never used Substance Use Topics Alcohol use: Not Currently Drug use: Not Currently Alcohol Use: Not Currently Tobacco Use: Types: Cigarettes History reviewed. No pertinent family history. Review of Systems HENT: Negative. Respiratory: Negative. Cardiovascular: Negative. Gastrointestinal: Positive for diarrhea. Negative for abdominal pain, blood in stool, nausea and vomiting. Genitourinary: Positive for dysuria. Musculoskeletal: Negative. Skin: Negative. Neurological: Negative. BP 121/89 Pulse 88 Temp 97.4 Resp 18 Wt 134 lb 6.4 oz (61.0kg) SpO2 97% Physical Exam Vitals and nursing note reviewed. Constitutional: Appearance: Normal appearance. She is normal weight. HENT: Head: Normocephalic and atraumatic. Right Ear: Tympanic membrane and ear canal normal. Left Ear: Tympanic membrane and ear canal normal. Nose: Congestion present. Mouth/Throat: Mouth: Mucous membranes are dry. Pharynx: Posterior oropharyngeal erythema present. No oropharyngeal exudate. Cardiovascular: Rate and Rhythm: Normal rate and regular rhythm. Heart sounds: Normal heart sounds. Pulmonary: Breath sounds: Normal breath sounds. Abdominal: General: Abdomen is flat. Bowel sounds are normal. There is no distension. Palpations: Abdomen is soft. Tenderness: There is no abdominal tenderness. There is no right CVA tenderness, left CVA tenderness or guarding. Skin: General: Skin is warm and dry. Neurological: General: No focal deficit present. Mental Status: She is alert. Psychiatric: Mood and Affect: Mood normal. ASSESSMENT/PLAN: 1. Dysuria - ICD9: 788.1, ICD10: R30.0 (primary diagnosis) Urinalysis obtained which did not show any signs of infection although there was 1+ hematuria of unknown etiology. Urine culture sent and pending at this time. She does not have any symptoms that this is more last just a concern of the family member given history of similar presentation in the past. - URINALYSIS, DIPSTICK ONLY - URINE CULTURE 2. Sore throat - ICD9: 462, ICD10: J02.9 Rapid strep negative throat culture pending. - RAPID GROUP A STREP RFLX TO CULT - THROAT CULTURE 3. Diarrhea Advised on fluids, rest, Gatorade or Powerade or Pedialyte for electrolytes replacement. Unclear as to exact etiology although this is only been going on for the past couple of days and therefore no further testing needed at this time. Advised to follow-up with her doctor soon as possible to ensure resolution. We discussed that the medication should only be used as needed after loose stools to prevent constipation. José Miguel Ricardo [facility] History of Present illness Narrative 07-12-2022 José Miguel Silva PA-C - 07/12/2022 11:53 AM EDT Note Date & Type Note Facility 07-12-2022 History of Presen t illness Narrative Johanna Lo is a 52 year old female who presents with UTI (X 2 days, sore throat throat) Patient presents to clinic today with chief complaint of diarrhea as well as concerns for UTI. Patient states for the past 2 days has had some watery diarrhea about 2-3 times a day. No nausea or vomiting no fevers or chills. Minimal runny nose. Has a family member who is in the nursing fashion who is concerned about the potential of urinary tract infection as there is been a history of this in the past cause some serious sepsis issues. UTI Pertinent negatives include no nausea and no vomiting. History reviewed. No pertinent past medical history. There is no problem list on file for this patient. Current Outpatient Medications Medication Sig Dispense Refill atorvastatin (LIPITOR) 80 mg tablet [address] (DEPAKOTE) 500 mg EC tablet 500 mg. esomeprazole magnesium (NEXIUM) 40 mg packet Take 40 mg by mouth. glipiZIDE (GLUCOTROL) 5 mg tablet Take by mouth. keTORolac (ACULAR) 0.5 % ophthalmic solution INSTILL 1 DROP INTO SURGICAL EYE 4 TIMES DAILY FOLLOW SCHEDULE levothyroxine (SYNTHROID) 25 mcg tablet Dose : 25 mcg = 1 tab(s), Oral, qDay, # 90 tab(s), 3 Refill(s), Pharmacy: [facility]/pharmacy #[id number], 157.6, cm, 08/20/21 11:03:00 EST, Height, kg, 08/20/21 11:03:00 EST, Dosing Weight metFORMIN ER (GLUCOPHAGE XR) 500 mg 24 hr tablet Take 500 mg by mouth. ondansetron (ZOFRAN) 4 mg tablet ZOFRAN TABLET PARoxetine (PAXIL) 40 mg tablet Take by mouth. triamcinolone acetonide (KENALOG) 0.1 % cream Apply to affected area. No current facility-administered medications for this visit. Social History Tobacco Use Smoking status: Every Day Types: Cigarettes Smokeless tobacco: Never Vaping Use Vaping Use: Never used Substance Use Topics Alcohol use: Not Currently Drug use: Not Currently Alcohol Use: Not Currently Tobacco Use: Types: Cigarettes History reviewed. No pertinent family history. Review of Systems HENT: Negative. Respiratory: Negative. Cardiovascular: Negative. Gastrointestinal: Positive for diarrhea. Negative for abdominal pain, blood in stool, nausea and vomiting. Genitourinary: Positive for dysuria. Musculoskeletal: Negative. Skin: Negative. Neurological: Negative. BP 121/89 Pulse 88 Temp 97.4 Resp 18 Wt 134 lb 6.4 oz (61.0kg) SpO2 97% Physical Exam Vitals and nursing note reviewed. Constitutional: Appearance: Normal appearance. She is normal weight. HENT: Head: Normocephalic and atraumatic. Right Ear: Tympanic membrane and ear canal normal. Left Ear: Tympanic membrane and ear canal normal. Nose: Congestion present. Mouth/Throat: Mouth: Mucous membranes are dry. Pharynx: Posterior oropharyngeal erythema present. No oropharyngeal exudate. Cardiovascular: Rate and Rhythm: Normal rate and regular rhythm. Heart sounds: Normal heart sounds. Pulmonary: Breath sounds: Normal breath sounds. Abdominal: General: Abdomen is flat. Bowel sounds are normal. There is no distension. Palpations: Abdomen is soft. Tenderness: There is no abdominal tenderness. There is no right CVA tenderness, left CVA tenderness or guarding. Skin: General: Skin is warm and dry. Neurological: General: No focal deficit present. Mental Status: She is alert. Psychiatric: Mood and Affect: Mood normal. ASSESSMENT/PLAN: 1. Dysuria - ICD9: 788.1, ICD10: R30.0 (primary diagnosis) Urinalysis obtained which did not show any signs of infection although there was 1+ hematuria of unknown etiology. Urine culture sent and pending at this time. She does not have any symptoms that this is more last just a concern of the family member given history of similar presentation in the past. - URINALYSIS, DIPSTICK ONLY - URINE CULTURE 2. Sore throat - ICD9: 462, ICD10: J02.9 Rapid strep negative throat culture pending. - RAPID GROUP A STREP RFLX TO CULT - THROAT CULTURE 3. Diarrhea Advised on fluids, rest, Gatorade or Powerade or Pedialyte for electrolytes replacement. Unclear as to exact etiology although this is only been going on for the past couple of days and therefore no further testing needed at this time. Advised to follow-up with her doctor soon as possible to ensure resolution. We discussed that the medication should only be used as needed after loose stools to prevent constipation. José Miguel Silva documented in this encounter [facility] Evaluation + Plan note Radiology Note Date & Type Note Facility Evaluation + Plan note Future Appointments Appointment Date:02/18/2022 11:00:00 AM Scheduled Provider:REFUGIO MCKENZIE Location:[facility] Appointment Type:PC OV Future Scheduled TestsMA Mammo Screening Bilateral w/ Thiago 08/20/21 [facility] Evaluation + Plan note Note Date & Type Note Facility Evaluation + Plan note Future Appointments Appointment Date:02/18/2022 11:00:00 AM Scheduled Provider:REFUGIO MCKENZIE Location:[facility] Appointment Type:PC OV [facility] Evaluation + Plan note Laboratory Note Date & Type Note Facility Evaluation + Plan note Future Appointments Appointment Date:03/30/2023 03:00:00 PM Scheduled Provider:REFUGIO MCKENZIE Location:[facility] Appointment Type:PC OV Future Scheduled TestsHIV 09/21 Ab 01/19/23 [facility] Evaluation note Note Date & Type Note Facility documented in this encounter [facility] Hospital course Narrative Note Date & Type Note Facility Hospital course Narrative No data available for this section [facility] Hospital Discharge instructions Note Date & Type Note Facility Hospital Discharge instructions No data available for this section [facility] Progress note Note Date & Type Note Facility Progress note No data available for this section [facility] Summary Purpose Family History No Family History Records FoundNo Family History Records Found Advance Directives No Advanced Directives Records FoundNo Advanced Directives Records Found Additional Source Comments Care Team (unrecognized sect ion and content) Personnel Name: REFUGIO MCKENZIE Address: [address] [place] [address]- [place] Care Team Personnel Name: REFUGIO MCKENZIE CORRUGATOR HELPER-DELICATESSEN SLICER Position: P4 [employer] Member Role: Primary Care Physician Address: Address: [address] [place] [address] Care Team Related Persons Name: DECLAN LO Name: JAKE BRIANDA Care Team Personnel Name: REFUGIO MCKENZIE CORRUGATOR HELPER-DELICATESSEN SLICER Position: P4 [employer] Member Role: Primary Care Physician Address: Address: [address] Care Team Related Persons Name: DECLAN LO Name: VANE JOSEPHORES Source Comments (unrecognize d section and content) In the event this informatio n is protected by the Federal Confidentiality of Alcohol and Drug Abuse Patient Records regulations: The Federal rules restrict any use of the information to criminally investigate or prosecute any alcohol or drug abuse patient.[facility] Reason for Visit (unrecogniz ed section and content) INFORMATION SOURCE (unrecogn ized section and content) DATE CREATED AUTHOR AUTHOR'S ORGANIZ ATION 03/18/2023 [facility] ([place]) FOR RECORDS PERTAINING TO PATIENTS WHO ARE OR HAVE BEEN ENROLLED IN A CHEMICAL DEPENDENCY/SUBSTANCEABUSE PROGRAM, SOME INFORMATION MAY BE OMITTED. This clinical summary was aggregated from multiple sources. Caution should be exercised in using it in the provision of clinical care. This summary normalizes information from multiple sources, and as a consequence, information in this document may materially change the coding, format and clinical context of patient data. In addition, data may be omitted in some cases. CLINICAL DECISIONS SHOULD BE BASED ON THE PRIMARY CLINICAL RECORDS. [employer] [facility]. provides no warranty or guarantee of the accuracy or completeness of information in this document.
== END | disposition home or self-care (01) ==
PROVIDERS: Referring Provider Psychiatry & Neurology Neurology; Visit Provider Psychiatry & Neurology Neurology
DX: G40.909 Epilepsy, unspecified, not intractable, without status epilepticus (principal)
CPT/HCPCS: 95819